=== PATIENT | female | born 1960 ===

== ENCOUNTER 2017-09-26 10:15 | Outpatient (CLI) | payer OTHER ==
--- NOTE | 2017-09-26 13:35 | MMO ---
BILATERAL SCREENING MAMMOGRAMS: Date: 09/26/17 Comparison made to prior exams from 2016. This patient's mammogram was interpreted with the assistance of computer-aided detection. FINDINGS: There are bilateral breast implants. Implants appear intact and stable from prior exam. There is a no dular density in the outer mid right breast with a small punctate calcification which is stable. This was described previously. No other mass or distortion. No interval change noted. Recommend one year follow-up. IMPRESSION: BIRADS 2: Benign Finding(s) POS: CECILY
== END 2017-09-26 10:16 | disposition home or self-care (01) ==
LOC: SCSMAMMO 10:15
PROVIDERS: ATTEND Obstetrics & Gynecology
DX: Z12.31 Encounter for screening mammogram for malignant neoplasm of breast (principal)
CPT/HCPCS: 77067

== ENCOUNTER 2018-12-31 13:09 | Outpatient (CLI) | payer OTHER ==
--- NOTE | 2018-12-31 15:29 | MMO ---
Bilateral MAMMO Bilat Screen [facility]. CLINICAL HISTORY: Patient is 58 years old and is seen for screening. The patient has the following family history of breast cancer: mother, at age 50, malignant (generic) and maternal grandmother, at age 40, malignant (generic). The patient has no personal history of cancer. The patient has a history of Implants in 2013. There are bilateral retro-pectoral silicone gel implants VIEWS: The views performed were: bilateral craniocaudal; bilateral mediolateral oblique; and bilateral Implant displaced. FILMS COMPARED: The present examination has been compared to prior imaging studies performed at [facility] on 05/14/2013, 03/27/2014, 03/28/2016 and 09/26/2017. This study has been interpreted with the assistance of computer-aided detection. MAMMOGRAM FINDINGS: There are scattered fibroglandular densities. There are benign appearing calcifications seen in the right breast. Stable nodules right breast. There are no suspicious masses, suspicious calcifications, or new areas of architectural distortion. IMPRESSION: THERE IS NO MAMMOGRAPHIC EVIDENCE OF MALIGNANCY. A ROUTINE FOLLOW-UP MAMMOGRAM IN 1 YEAR IS RECOMMENDED. ACR BI-RADS Category 2 - Benign finding MAMMOGRAPHY NOTE: 1. A negative mammogram report should not delay a biopsy if a dominant of clinically suspicious mass is present. 2. Approximately 10% to 15% of breast cancers are not detected by mammography. 3. Adenosis and dense breasts may obscure an underlying neoplasm. Reported by: MONSE SAAVEDRA MD Electonically Signed: [id number]
== END 2018-12-31 13:10 | disposition home or self-care (01) ==
LOC: SCSMAMMO 13:09
PROVIDERS: ATTEND Obstetrics & Gynecology
DX: Z12.31 Encounter for screening mammogram for malignant neoplasm of breast (principal); Z80.3 Family history of malignant neoplasm of breast; Z98.82 Breast implant status
CPT/HCPCS: 77067